=== PATIENT | female | born 1975 | race Caucasian/White ===

== ENCOUNTER 2016-10-05 08:34 | Day surgery (SDC) | payer OTHER ==
[~2016-10-05] VITALS: Ht 157.5 cm; Wt 93.0 kg
[~2016-10-05 08:34] MED LIST: AMITRIPTYLIN50 MG PO; B-121000 MC4 PO; BUT/APAP/CAF PO; OMEPRAZOLE20 MG PO; POTASSIUM CHLO10 MEQ PO; PROAIR HFA IN; TOVIAZ4 MG PO; TRIAMCINOLON0.11 EX; XYZAL5 MG PO
[2016-10-05] MEDS ORDERED: ATENOLOL (08:55)
[2016-10-05 09:19] LABS: ANION GAP 13 (6-22 (CALC)); BUN 8 mg/dL (7-17); BUN/CREATININE RATIO 10 (12-20 (CALC)); CALCIUM 9.1 mg/dL (8.4-10.2); CARBON DIOXIDE 28 mmol/l (22-30); CHLORIDE 104 mmol/l (95-108); CREATININE 0.8 mg/dL (0.5-1.0); GFR > 60 ML/MIN (>=60 (CALC)); GFR FOR AFR.AMER. > 60 ML/MIN (>=60 (CALC)); GLUCOSE 95 mg/dL (65-105); POTASSIUM 3.5 mmol/l (3.5-5.1); SODIUM 142 mmol/l (137-146)
[2016-10-05 11:11] VITALS: BP 118/67
== END 2016-10-05 11:23 | disposition home or self-care (01) | DRG 392 ==
LOC: ENDO 08:34 → ORM 11:15 → ENDO 11:15
PROVIDERS: ATTEND Internal Medicine Gastroenterology
PROC: 0DB68ZX Excision of Stomach, Via Natural or Artificial Opening Endoscopic, Diagnostic (ICD-10-PCS; principal; 2016-10-05)
PROC: 0DB48ZX Excision of Esophagogastric Junction, Via Natural or Artificial Opening Endoscopic, Diagnostic (ICD-10-PCS; 2016-10-05)
PROC: 0DBK8ZX Excision of Ascending Colon, Via Natural or Artificial Opening Endoscopic, Diagnostic (ICD-10-PCS; 2016-10-05)
PROC: 0DBN8ZX Excision of Sigmoid Colon, Via Natural or Artificial Opening Endoscopic, Diagnostic (ICD-10-PCS; 2016-10-05)
PROC: 0DBL8ZX Excision of Transverse Colon, Via Natural or Artificial Opening Endoscopic, Diagnostic (ICD-10-PCS; 2016-10-05)
DX: R10.11 Right upper quadrant pain (principal); I10 Essential (primary) hypertension; K92.1 Melena; R11.2 Nausea with vomiting, unspecified; K59.00 Constipation, unspecified; K21.9 Gastro-esophageal reflux disease without esophagitis; R14.0 Abdominal distension (gaseous); R19.5 Other fecal abnormalities; K64.4 Residual hemorrhoidal skin tags; K64.8 Other hemorrhoids; D12.2 Benign neoplasm of ascending colon; D12.3 Benign neoplasm of transverse colon; D12.5 Benign neoplasm of sigmoid colon; K29.50 Unspecified chronic gastritis without bleeding; K44.9 Diaphragmatic hernia without obstruction or gangrene; Q40.2 Other specified congenital malformations of stomach

== ENCOUNTER 2018-05-02 08:57 | Day surgery (SDC) | payer OTHER ==
[~2018-05-02] VITALS: Ht 160 cm; Wt 97.5 kg
[~2018-05-02 08:57] MED LIST changes: +ATENOLOL; +ATENOLOL50 MG PO; +CHANTIX0.5 MG PO; +ZOLOFT50 MG PO
[2018-05-02 13:31] VITALS: BP 106/59
== END 2018-05-02 13:45 | disposition home or self-care (01) | DRG 392 ==
LOC: ENDO 08:57 → ORM 11:30 → ENDO 12:30
PROVIDERS: ATTEND Internal Medicine Gastroenterology
PROC: 0DB48ZX Excision of Esophagogastric Junction, Via Natural or Artificial Opening Endoscopic, Diagnostic (ICD-10-PCS; principal; 2018-05-02)
PROC: 0DB78ZX Excision of Stomach, Pylorus, Via Natural or Artificial Opening Endoscopic, Diagnostic (ICD-10-PCS; 2018-05-02)
DX: K29.50 Unspecified chronic gastritis without bleeding (principal); K21.0 Gastro-esophageal reflux disease with esophagitis; K31.9 Disease of stomach and duodenum, unspecified; K44.9 Diaphragmatic hernia without obstruction or gangrene; K76.0 Fatty (change of) liver, not elsewhere classified; K58.9 Irritable bowel syndrome, unspecified; K64.4 Residual hemorrhoidal skin tags; K64.8 Other hemorrhoids; I10 Essential (primary) hypertension; Z86.010 Personal history of colon polyps